=== PATIENT | male | born 2000 | race Caucasian/White ===

== ENCOUNTER 2021-09-30 03:42 | Emergency (ER) | payer SELFPAY ==
[2021-09-30] MEDS ORDERED: Oxymetazoline HCl 0.05% ( 15 ML ) NASAL SCH (04:15)
== END 2021-09-30 04:10 ==
LOC: CSHERS 03:42
DX: S00.33XA Contusion of nose, initial encounter (principal); R04.0 Epistaxis; Z02.89 Encounter for other administrative examinations; V89.2XXA Person injured in unspecified motor-vehicle accident, traffic, initial encounter
CPT/HCPCS: 99284